=== PATIENT | female | born 1990 | race Caucasian/White ===

== ENCOUNTER 2019-02-26 12:11 | Day surgery (SDC) | payer OTHER, MEDICAID ==
[2019-02-26] MEDS ORDERED: FENTAnyl 50 MCG/ML VIAL (13:46)
[2019-02-26] MEDS ORDERED: MIDAZOLAM 1 MG/ML 2 ML INJ (13:46)
[2019-02-26] MEDS: BUPIVACAINE 0.5%/EPI (SDV) 30 ML INJ (14:23)
[2019-02-26] MEDS ORDERED: GLYCOPYRROLATE 0.4 MG INJ (14:40)
[2019-02-26] MEDS ORDERED: PROPOFOL 20 ML (14:40)
[2019-02-26] MEDS ORDERED: ROCURONIUM 50 MG INJ (14:40)
[2019-02-26] MEDS ORDERED: NEOSTIGMINE 3 MG/3 ML SYRINGE (14:40)
[2019-02-26] MEDS ORDERED: ONDANSETRON 4 MG INJ (14:40)
[2019-02-26] MEDS ORDERED: CEFAZOLIN 1 GM INJ (14:40)
[2019-02-26] MEDS ORDERED: LIDOCAINE 2% (SDV) 5 ML INJ (14:40)
[2019-02-26] MEDS ORDERED: DIPHENHYDRAMINE 50 MG INJ IV (15:00)
[2019-02-26] MEDS ORDERED: METOCLOPRAMIDE 10 MG INJ IV (15:00)
[2019-02-26] MEDS ORDERED: FENTAnyl 50 MCG/ML VIAL IV (15:00)
[2019-02-26] MEDS ORDERED: HYDROmorphONE 1 MG/5 ML IV SYRINGE IV ×2 (15:00)
[2019-02-26] MEDS: LACTATED RINGER'S 1,000 ML IV (15:01)
[2019-02-26] MEDS: MEPERIDINE 25 MG INJ IV (15:08)
[2019-02-26] MEDS: ONDANSETRON 4 MG INJ IV (15:09)
== END 2019-02-26 19:00 | disposition home or self-care (01) ==
LOC: SDS 12:11
DX: Z30.2 Encounter for sterilization (principal)
CPT/HCPCS: 58661; 84703; 88302